=== PATIENT | female | born 1950 | race Caucasian/White ===

== ENCOUNTER 2022-08-03 08:58 | Emergency (ER) | payer MEDICARE, BC, SELFPAY ==
[2022-08-03 09:05] VITALS: BP 141/86; PULSE 65; RESP 19; TEMP 36.7; O2SAT 97; BMI 22.1
--- NOTE | 2022-08-03 09:14 | EXP.UTC ---
Discharge Plan Disposition Patient Disposition: Home, Self-Care Condition: Good Prescriptions Prescriptions: New benzonatate [benzonatate] 100 mg capsule 100 mg PO TIDP PRN (Reason: Cough) Qty: 30 0RF methylprednisolone 4 mg Tablets,Dose Pack 4 mg PO DIRECTED Qty: 21 0RF amoxicillin-pot clavulanate 875-125 mg Tablet 1 tab PO Q12H Qty: 20 0RF guaifenesin [Mucinex] 600 mg tablet extended release 12hr 600 - 1,200 mg PO BIDP PRN (Reason: Congestion) Qty: 30 0RF No Action levothyroxine 75 mcg Tablet 75 mcg PO DAILY Referrals Follow up/Referrals: Provider,Referral, MD [Primary Care Provider] - See instructions Activity Restrictions/Add. Instructions Additional Instructions/Restrictions: Drink plenty of fluids. Take tylenol or ibuprofen for pain or fever. Take the medications as directed. Follow up with your regular doctor. GO TO THE ER FOR ANY WORSENING SYMPTOMS Clinical Impressions Clinical Impression: Sinusitis Instructions Patient Instructions: Sinusitis, DI for Sinusitis Discharge ED Provider: Chapito Christian [facility] General Stated complaint: Sore throat, fatigue Time Seen by Provider: 08/03/22 09:14 Related Data Home Medications Medication Instructions Recorded Confirmed levothyroxine 75 mcg tablet 75 mcg PO DAILY thyroid 08/03/22 08/03/22 Previous Rx's Medication Instructions Recorded amoxicillin 875 mg-potassium 1 tab PO Q12H #20 tabs 08/03/22 clavulanate 125 mg tablet benzonatate 100 mg capsule 100 mg PO TIDP PRN Cough #30 caps 08/03/22 guaifenesin 600 mg tablet, 600 - 1,200 mg PO BIDP PRN 08/03/22 extended release 12 hr (Mucinex) Congestion #30 tabs methylprednisolone 4 mg tablets in 4 mg PO DIRECTED #21 tabs 08/03/22 a dose pack Allergies Allergy/AdvReac Type Severity Reaction Status Date / Time No Known Allergies Allergy Verified 08/03/22 09:19 [facility] Disclaimer: The information contained in this section may have been updated after the patient was seen, as this information can be updated by other users. Social History Smoking Status: Never smoker alcohol intake: never current occupational status: retired Travel in the last 8 weeks: None ROS Obtained: Yes All systems reviewed & no additional complaints except as documented Constitutional Constitutional: Reports poor appetite Eyes Eyes: Reports system reviewed and no additional complaints, except as documented ENT Ears, Nose, Mouth, and Throat: Reports as per HPI Cardiovascular Cardiovascular: Reports system reviewed and no additional complaints, except as documented and Denies chest pain Respiratory Respiratory: Denies shortness of breath, Denies chest congestion, Reports cough, Denies stridor and Denies wheezing Gastrointestinal Gastrointestingal: Reports system reviewed and no additional complaints, except as documented; Denies abdominal pain, diarrhea or vomiting Musculoskeletal Musculoskeletal: Reports system reviewed and no additional complaints, except as documented and Denies arthralgias Integumentary/Breasts Skin/Breast: Reports system reviewed and no additional complaints, except as documented and Denies rash Neurologic Neurologic: Denies paresthesias Allergic/Immunologic Allergic/Immunologic: Denies wheezing Physical Exam General General appearance: alert and in no apparent distress Eye Eye exam: Present normal appearance, PERRL and EOMI ENT ENT exam: Present mucous membranes moist and normal external ear exam Expanded ENT Exam External ear exam: Present normal external inspection TM/Canal exam: Bilateral TM: erythema and bulging Nose exam: Absent sinus tenderness Nasal speculum exam: Bilateral: normal Mouth exam: Present normal external inspection; Absent drooling Teeth exam: Present normal inspection Throat exam: Present tonsillar erythema and tonsillomegaly Neck Neck exam: Present normal
[2022-08-03 09:30] LABS: UTC Strep Screen (Rapid) Negative (Negative)
[2022-08-03 09:56] VITALS: BP 141/86; PULSE 65; RESP 18; TEMP 36.7; O2SAT 97
== END 2022-08-03 09:55 | disposition home or self-care (01) ==
PROVIDERS: Emergency Provider Nurse Practitioner Family
DX: J01.90 Acute sinusitis, unspecified (principal)
CPT/HCPCS: 87880; 99204; 99212; G0463

== ENCOUNTER 2024-05-13 11:13 | Emergency (ER) | payer MEDICARE, SELFPAY ==
--- NOTE | 2024-05-13 11:02 | PC.NURSE ---
DR HENRIQUEZ AT BEDSIDE
--- NOTE | 2024-05-13 11:07 | ECG_ITS ---
APPROVED REPORT Exam: Resting ECG HR:70 bpm ECG Measurements Heart Rate 70 AXES LA 153 P 82 QRSd 85 QRS 93 QT 386 T 87 QTc 407 Conclusion SINUS RHYTHM POSSIBLE RIGHT ATRIAL ENLARGEMENT [0.25mV P-WAVE] BORDERLINE RIGHT AXIS DEVIATION [QRS AXIS > 90] NONSPECIFIC T-WAVE ABNORMALITY BORDERLINE ECG UNCONFIRMED REPORT Electronically signed by : HUDSON FORTUNE, 05/14/2024 06:50:10
--- NOTE | 2024-05-13 11:09 | XR_ITS ---
FINAL REPORT CLINICAL HISTORY: syncope COMPARISON: None FINDINGS: CHEST SINGLE VIEW: A portable view of the chest was obtained. The heart size is normal. The mediastinum is normal. There is no focal infiltrate or edema. There is a right perihilar density present, as well as pleural thickening present in the left lung apex. There are no pleural effusions. There is no pneumothorax. There is no osseous abnormality. IMPRESSION: Right perihilar density, and without prior examinations would suggest CT of the chest for further evaluation. Left pleural calcification is present. Reviewed, Interpreted and Dictated by Alin Mcgrath MD Transcribed by Meli Willis Authenticated and [facility]
[2024-05-13 11:13] VITALS: BP 133/78; PULSE 78; RESP 18; TEMP 36.8; O2SAT 98; BMI 19.7
[2024-05-13 11:25] LABS: Basophils # 0.1 K/mm3 (0-0.2); Basophils % 0.8 % (0.1-2.0); Eosinophils % 0.5 % (0.1-12.0); Hematocrit 44.8 % (37.0-47.0); Hemoglobin 14.7 g/dL (12.2-16.2); Lymphocytes # 0.5 K/mm3 (0.7-4.5); Lymphocytes % 6.6 % (10-50); Mean Corpuscular HGB Conc 32.8 g/dL (31.8-35.4); Mean Corpuscular Hemoglobin 28.3 pg (27.0-31.2); Mean Corpuscular Volume 86.3 fl (81-99); Mean Platelet Volume 10.2 fl (7.4-10.4); Monocytes # 0.6 K/mm3 (0.1-1.0); Monocytes % 7.5 % (1.7-9.3); Neutrophils # 6.6 K/mm3 (1.8-7.8); Neutrophils % 84.3 % (37.0-80.0); Platelet Count 212 K/mm3 (142-424); Red Blood Count 5.19 M/mm3 (4.20-5.40); White Blood Count 7.8 K/mm3 (4.8-10.8)
--- NOTE | 2024-05-13 11:26 | HMH.EDGENADL ---
Discharge Plan Disposition Patient Disposition: Home, Self-Care Prescriptions Prescriptions: No Action levothyroxine 75 mcg Tablet 75 mcg PO DAILY Referrals Follow up/Referrals: Provider,Referral, MD [Primary Care Provider] - See instructions Activity Restrictions/Add. Instructions Additional Instructions/Restrictions: Call your family doctor to establish care for this visit to the emergency department and schedule follow-up within 48 hours to ensure improvement. If you have any worsening of your condition or any other concerning signs or symptoms, return to the emergency department or your primary care doctor for further evaluation. If you have any other episodes, call cardiology to follow-up for further evaluation. Also talk to family doctor regarding thyroid medication. TSH today was elevated at 11 meaning you probably need to have adjustment upward in your meds. Clinical Impressions Clinical Impression: Syncope, vasovagal Instructions Patient Instructions: DI for Syncope in Adults (Fainting), DI for Syncope in Children (Fainting) Print Language Print Language: Angolan Discharge ED Provider: Paul Dos Santos General Adult HPI General Chief complaint: Syncope Stated complaint: SYNCOPE Time Seen by Provider: 05/13/24 11:15 Mode of Arrival: EMS Source of Information: Patient Limitations: No Limitations Description of Symptoms (Recalled from ER Triage Doc. by RN): Pt presents via [facility] from [facility]. Pt was being seing there for sinus pressure and a slight headache. Pt had a syncopal episode and fell. PT did not hit her head, and is not on blood thinners. Pt regained LOC and felt like the pressure decreased in her sinuses. History of Present Illness HPI narrative: Please note that above description of symptoms, in this electronic medical record under categorization of recalled from ER triage doctor by RN are reflective of an initial nursing assessment, however, is not reflective of my full history and physical exam that was personally taken and clarified. Consequentially, this preceding description of symptoms, which may include the patient's categorized chief complaint in the EMR, do not reflect my personal clinical impression, and the ultimate description of history of present illness and patient stated complaints should be deferred to this section of the note. Unless stated otherwise or congruent with this section of the note, additional signs, symptoms, or incongruence should be interpreted as inaccurate with my clinical impression. Related Data Home Medications ?Medication ?Instructions ?Recorded ?Confirmed levothyroxine 75 mcg tablet 75 mcg PO DAILY thyroid 08/03/22 05/13/24 Allergies Allergy/AdvReac Type Severity Reaction Status Date / Time No Known Allergies Allergy Verified 05/13/24 11:36 [facility] Disclaimer: The information contained in this section may have been updated after the patient was seen, as this information can be updated by other users. Medical History (Updated 05/13/24 @ 12:27 by Paul Dos Santos MD) Hypothyroid Social History Smoking Status: Never smoker alcohol intake: never current occupational status: retired Travel in the last 8 weeks: None Have you lived/traveled outside US in past 30 days?: No Contact w/someone who lives/traveled outside US past 30 days?: No Exposure to someone with infectious disease in past 14 days?: No Do you have a fever (greater than 100.4 F or 38 C)?: No Have you tested positive for COVID-19: No Exposed to someone with COVID-19 in past 14 days?: No Do you have a sore throat?: No Do you have a cough?: No Do you have any weakness?: No Do you have any diarrhea?: No Are you experiencing any unusual bleeding?: No Do you have any muscle aches/pain?: No Do you have any abdominal pain?: No Are you experiencing loss of taste or smell?: No ROS Obtained: Yes All systems reviewed & no additional complaints except as documented Physical Exam General General appearance: alert Head Head exam: atraumatic and normocephalic Eye Eye exam: Present normal appearance, PERRL and EOMI Neck Neck exam: Present normal inspection, full ROM and trachea midline Respiratory Respiratory exam: Absent respiratory distress, wheezes, stridor, accessory muscle use or prolonged expiratory phase Cardiovascular Cardiovascular exam: Present other (Pulses equal symmetric in upper and lower extremities) Abdominal Exam Abdominal exam: Present soft; Absent distention, tenderness or pulsatile mass Extremities Exam Extremities exam: Absent edema Neurological Exam Neurological exam: Present alert, oriented X3 and CN II-XII intact; Absent motor sensory deficit Skin Skin exam: Present warm and dry; Absent diaphoresis or erythema Medical Decision Making Medical Records Medical records reviewed: Yes I reviewed the patient's medical records. Screening: Per USPSTF and CDC recommendations, given the prevalence of disease in our region, it is our hospital?s policy to screen for HIV and viral Hepatitis for all patients aged 18 and over and those with ongoing risk factors. Derick Inquiry Pt receiving controlled substance: No Derick was queried for this patient: No Vital Signs: 05/13/24 11:13 05/13/24 12:31 Temperature 98.2 F 98.6 F Temperature Source Oral Oral Pulse Rate 68 Pulse Rate [Left] 78 Respiratory Rate 18 18 Blood Pressure 143/78 H Blood Pressure [Right Arm] 133/78 Blood Pressure Mean [Right Arm] 96 Blood Pressure Source Automatic Cuff Blood Pressure Source [Right Arm] Automatic Cuff Blood Pressure Position Sitting 02 Sat by Pulse Oximetry 98 Oxygen Delivery Method Room Air Room Air Lab Data Lab Results 05/13/24 11:13: WBC 7.8, RBC 5.19, Hgb 14.7, Hct 44.8, MCV 86.3, MCH 28.3, MCHC 32.8, RDW 14.0, Plt Count 212, MPV 10.2, Neut % (Auto) 84.3 H, Lymph % (Auto) 6.6 L, [place] % (Auto) 7.5, Eos % (Auto) 0.5, Baso % (Auto) 0.8, Neut # (Auto) 6.6, Lymph # (Auto) 0.5 L, [place] # (Auto) 0.6, Eos # (Auto) 0.0, Baso # (Auto) 0.1, APTT 23.9, Sodium 137, Potassium 4.2, Chloride 103, Carbon Dioxide 24, Anion Gap 14.2, BUN 11, Creatinine 0.70, Estimated Creat Clear 42, Estimated GFR 82, Est GFR ( Amer) 100, Glucose 102 H, Calcium 8.6, Magnesium 1.9, Total Bilirubin 0.5, AST 43 H, ALT 29, Alkaline Phosphatase 58, Troponin I < 0.01, NT-Pro-B Natriuret Pep 72.3, Total Protein 7.3, Albumin 4.9, Globulin 2.4, Albumin/Globulin Ratio 2.0 H, TSH 11.00 H, Thyroxine (T4) 9.8 05/13/24 11:13 05/13/24 11:13 Orders (Tests/Meds): ED MEDICATIONS Discontinued Medications Generic Name Dose Route Start Last Admin Trade Name Freq PRN Reason Stop Dose Admin Ketorolac Tromethamine 15 mg 05/13/24 11:10 05/13/24 11:28 Ketorolac 30mg/Ml Vial IV 05/13/24 11:11 15 mg ONCE ONE Administration ORDERS Category Date Time Status XR chest portable Stat Exams 05/13/24 11:09 Completed Complete Blood Count Auto Diff Stat Lab 05/13/24 11:13 Completed Comprehensive Metabolic Panel Stat Lab 05/13/24 11:13 Completed Magnesium Stat Lab 05/13/24 11:13 Completed NT Pro Brain Natriuretic Pep. Stat Lab 05/13/24 11:13 Completed PTT [Activated Partial Thrombo Time] Stat Lab 05/13/24 11:13 Completed T4 (Thyroxine) Stat Lab 05/13/24 11:13 Completed TSH [Thyroid Stimulating Hormone] Stat Lab 05/13/24 11:13 Completed Troponin I Stat Lab 05/13/24 11:13 Completed HEART Score History (anamnesis): Slightly suspicious ECG: Normal Age: >65 years Risk factors: No known risk factors Troponin: </= normal limit HEART Score: 2 Medical Decision Narrative: 73-year-old female hypothyroidism presenting with syncopal episode. Patient's been feeling congested last couple of days. Eating and drinking per normal. She went to the urgent care today at an outside facility and while she was waiting in line, she felt lightheaded, nauseated, as if she was going to vomit in the next day she knows she woke up on the floor. EMS was contacted and she was brought here. Patient is completely asymptomatic on arrival and has no complaints. History was obtained via conversation with patient. On arrival, patient hemodynamically stable, alert, oriented x4, appropriate, GCS 15, moving all extremities spontaneously, pupils equal and reactive to light. Full physical exam performed and significant for well-appearing female no acute distress. Speaking full sentences, jovial, appropriate. Lungs are clear, heart sounds are normal. No lower extremity edema, pulses equal and symmetric, clinically very well. Differential includes vasovagal, orthostatic, arrhythmia, metabolic, endocrinologic, dehydration, PE, CHF, ACS, VT, among others. Patient placed on continuous cardiac monitoring and continuous pulse ox with initial blood pressure 133/78, heart rate 78, saturation 98% on room air. Independent interpretation of EKG shows sinus rhythm [address] or T wave changes concerning for acute ischemia. NJ 153, QRS 85, QTc 4 7. Normal axis. No acute ischemic change. Patient was given IV fluids for symptomatic management and correction of underlying abnormalities. Workup independently interpreted and significant for nonactionable hematologic workup other than elevated TSH, this was relayed to patient. On independent interpretation of imaging, no acute cardiopulmonary airspace disease on chest x-ray. Right perihilar density discussed with patient and is known to her. See radiology read for full review of final results. Heart score 2. On reevaluation, patient resting comfortably no acute complaints and no further episodes of syncope. Given patient presentation, workup, history, this most likely represents low risk vasovagal syncope. Because patient at baseline without signs or symptoms of clinical decompensation, deemed appropriate for discharge. Results were relayed to patient who voiced understanding and were agreeable to outpatient management and follow up. I discussed my clinical impression with patient and answered all questions. At this time, the evidence for any other entities in the differential is insufficient to warrant any further testing or ED observation. This was explained as well. Advisory was given that persistent or worsening symptoms require further evaluation. I confirmed the understanding of this discussion. Analytics Developer disclaimer Much of this encounter note is an electronic warehouse specialist spoken language to printed text. Electronic warehouse specialist of the spoken language may permit errors. Although I have reviewed the note, some errors may still exist. Critical Care Critical Care Time Critical Care Time: No
[2024-05-13 11:28] LABS: Alanine Aminotransferase 29 U/L (12-78); Albumin Level 4.9 g/dl (3.5-5.0); Alkaline Phosphatase 58 U/L (38-126); Anion Gap 14.2 mEq/L (5-15); Aspartate Amino Transferase 43 U/L (14-36); Bilirubin,Total 0.5 mg/dl (0.2-1.3); Blood Urea Nitrogen 11 mg/dl (7-17); Calcium 8.6 mg/dl (8.4-10.2); Carbon Dioxide 24 mmol/L (22.0-30.0); Chloride 103 mmol/L (98-107); Creatinine Clearance Estimated 42 mL/min (50-200); Estimated Glomerular Filt Rate 82 ml/min (>60); GFR (African American) 100 ML/MIN (>60); Globulin 2.4 g/dL (1.3-3.2); Glucose 102 mg/dl (74-100); Magnesium 1.9 mg/dl (1.6-2.3); Potassium 4.2 mmoL/L (3.5-5.1); Sodium 137 mmol/L (136-145); Total Protein,Serum 7.3 g/dl (6.3-8.2)
[2024-05-13] MEDS: KETOROLAC 30MG/ML VIAL 15 MG IV (11:28)
[2024-05-13 11:42] LABS: NT Pro Brain Natriuretic Pep. 72.3 pg/mL (0-125)
[2024-05-13 11:43] LABS: Troponin I < 0.01 ng/ml (0.00-0.034)
[2024-05-13 11:45] LABS: Activated Partial Thrombo Time 23.9 seconds (22.5-28.5)
--- NOTE | 2024-05-13 12:23 | PC.NURSE ---
1224 Pt sleeping at this time. Call light within reach
[2024-05-13 12:31] VITALS: BP 143/78; PULSE 68; RESP 18; TEMP 37; O2SAT 98
[2024-05-13 13:58] LABS: T4 (Thyroxine) 9.8 ug/dl (5.53-11.0)
== END 2024-05-13 12:37 | disposition home or self-care (01) ==
PROVIDERS: Emergency Provider Emergency Medicine
DX: R55 Syncope and collapse (principal); R51.9 Headache, unspecified; J34.89 Other specified disorders of nose and nasal sinuses; R42 Dizziness and giddiness; R11.0 Nausea
CPT/HCPCS: 71045; 80053; 83735; 83880; 84436; 84443; 84484; 85025; 85730; 93005; 96374; 99284; J1885

== ENCOUNTER 2024-10-24 12:45 | Outpatient (CLI) | payer MEDICARE, SELFPAY ==
--- OUTSIDE RECORDS SUMMARY | 2022-08-26 13:17 | XMS_ITS | Continuity of Care Document ---
Author Organization [facility] Address [address] [place] [id number] Phone Care Team Providers Care Truck Driver Name Role Phone Rey Ramirez MD Unavailable Unavailable Allergies, Adverse Reactions, Alerts Substance Reaction Status Criticality No Known Allergies Active No Inform ation Medications Medication Instructions Dosage Effective Dates (start - stop) Status Comments Clenpiq 10 mg-3.5 gram-12 gram/160 mL oral solution Take as directed. - Active alendronate 70 mg tablet take 1 tablet by oral route every week in the morning, at least 30 min before first food, beverage, or medication of day 70 MG - Active calcium carbonate 600 mg (1,500 mg)-vitamin D3 400 unit tablet 2 tabs PO daily - Active levothyroxine 75 mcg tablet take 1 tablet by oral route 5 days/week - Active Procedures Procedure Date LESION REMOVAL COLONOSCOPY COLONOSCOPY AND BIOPSY Moderate Sedation; First 15 Minutes Moderare Sedation; Each Addl 15 Minutes Tissue Exam By Pathologist Lesion Removal Colonoscopy Colonoscopy And Biopsy Patient Did NOT Experience Burn, Fall, W shirin, Admi OFFICE/OUTPATIENT VISIT, NEW OFFICE/OUTPATIENT VISIT, EST-Expanded Ma [facility] Annual Wellness Visit - Subsequent Visit ACP DISCUSS/DSCN MKR DOCD VENIPUNCTURE Admin pneumococcal vaccine PCV20 VACCINE IM OFFICE/OUTPATIENT VISIT, EST-Expanded Scott Cepheid Quad Test (SARS CoV2, FluA&B, RS V) Admin pneumococcal vaccine PNEUMOCOCCAL VACCINE Admin influenza virus vac RIV4 VACC RECOMBINANT DNA IM VENIPUNCTURE [facility] Annual Wellness Visit - Subsequent Visit OFFICE/OUTPATIENT VISIT, EST-Expanded Au OFFICE/OUTPATIENT VISIT, EST-Detailed Ma OFFICE/OUTPATIENT VISIT, EST-Expanded Scott Flu Vacc Flulaval 0.5mL Multi Dose Vial 6 + Months Admin influenza virus vac Nurse Visit No Charge LESION REMOVAL COLONOSCOPY COLONOSCOPY AND BIOPSY COLON W/SNARE/COLD POLYPECTOMY 15 COLON W/BIOPSY OFFICE/OUTPATIENT VISIT, [facility] Advance Directives Directive Yes / No Effective Date File Name No Information Encounters Encounter Description Practice Location Reason(s) For Visit Diagnoses Date Provider Providers Copied on Encounter [facility], [address] [place] [address], [address] [place] [address] tel:[phone] [facility] No Information 3 Ashley Le. [address] [place] [address], [facility] [place], [facility], . tel:[phone] Referring Provider: Ana Partida, [address] [place] [address] [place] [address] [place], [address]. tel:[phone] [facility], [address] [place] [address], [address] [place] [address], [facility], tel:[phone] [facility] No Information 2 Robin Chi. [address] [place] [address], [address], [place], [place], [id number], [place]. tel:[phone] Referring Provider: Luis Cobb, Fax To LOCATION FLOAT Provider For [facility], [place], [address]. [facility], [facility], [address], [place], [address], [place] tel:[phone] [facility] No Information 2 Leonardo Archer. [facility], [address], [place], [address], [place]. tel:[phone] Referring Provider: Jerad Dickson Dr [address] [facility], [place], [address]. tel:[phone] [facility], [facility], [place], [address], tel:[phone] [facility] No Information 2 Robin Chi. [address], [address] [facility], [place], [place], [id number], [place]. tel:[phone] Referring Provider: Jerad Dickson Dr [address] [address] [facility], [place], [address]. tel:[phone] [facility], [facility], [address], [place], [address], [place] tel:[phone] [facility] Personal history of colon cancer Mar-2 2 Robin Chi. [address], [address] [facility], [place], [place], [id number], [place]. tel:[phone] Referring Provider: Luis Cobb, Fax To LOCATION FLOAT Provider For [facility], [place], [address]. OFFICE/OUTPA TIENT VISIT, NEW [facility], [facility], [address], [place], [address], [place] tel:[phone] [facility] Screening Colonoscopy (chief complaint) Personal history of colon cancer 2 Robin Chi. [address], [address] on [facility], [place], [place], [id number], [place]. tel:[phone] Referring Provider: Luis Cobb, Fax To LOCATION FLOAT Provider For [facility], [place], [address]. OFFICE/OUTPA TIENT VISIT, EST-Expanded [facility] [address], [facility], [place] tel:[phone] [facility] medicare preventive (chief complaint)f/ u osteoporosis , lung nodule (chief complaint) General medical examinationP ostoperative hypothyroidi smSeasonal allergic rhinitis due to pollenHistor y of uveitisPulmo nary nodulePostme nopausal osteoporosis Body mass index [BMI] 24.0-24.9, adultSmoking history 2 Marbin Perez. [address], [facility] [place], [id number], [place]. tel:[phone] Referring Provider: Ana Partida, [address] [facility] [place], [address]. tel:[phone] OFFICE/OUTPA TIENT VISIT, EST-Expanded [facility] [address], [address], [place] tel:[phone] [facility] sick (chief complaint) Acute non-recurren t maxillary sinusitisPND (post-nasal drip)Advice given about COVID-19 virus infectionCou 2 Reza Smith. Fax To LOCATION FLOAT Provider For [facility], [place], [address], [place]. Referring Provider: Luis Cobb, Fax To LOCATION FLOAT Provider For [facility], [place], [address]. [facility] [address], [address], tel:[phone] [facility] No Information 0 Reza Smith. Fax To LOCATION FLOAT Provider For [facility], [place], [address], [place]. Referring Provider: Luis Cobb, Fax To LOCATION FLOAT Provider For [facility], [place], [address]. [facility], [address] [place] [address], [facility], tel:[phone] [facility] No Information 0 Reza Smith. Fax To LOCATION FLOAT Provider For [facility], [place], [address], [place]. Referring Provider: Luis Cobb, Fax To LOCATION FLOAT Provider For [facility], [place], [place], [facility]. OFFICE/OUTPA TIENT VISIT, EST-Expanded [facility], [address] [place] [address], [facility], tel:[phone] [facility] medicare preventive (chief complaint)Ch ronic Conditions (chief complaint) General medical examinationH ypothyroidis m, unspecified typeBody mass index (BMI) 22.0-22.9, adultSmoker 0 Reza Smith. Fax To LOCATION FLOAT Provider For [facility], [place], [address], [place]. Referring Provider: Luis Cobb, Fax To LOCATION FLOAT Provider For [facility], [place], [address]. OFFICE/OUTPA TIENT VISIT, EST-Detailed [facility], [address] [place] [address], [facility], tel:[phone] [facility] URI (chief complaint)sm oking cessation (chief complaint) Sinusitis, bacterialOth er specified bacterial agents as the cause of diseases classified elsewhereEnc ounter for smoking cessation counseling Hussein Smith. [address] [place] [address], [facility], . tel:[phone] Referring Provider: Luis Le, [address] [place] [address], [facility]. tel:[phone] [facility], [address] [place] [address], [address], [place] tel:[phone] [facility] No Information Nurse Services. [address] [place], [place], [id number], . [phone] Referring Provider: Luis Cobb, Fax To [facility] For [facility], [place], [address]. OFFICE/OUTPA TIENT VISIT, EST-Expanded [facility], [address] [place] [address], [address], [place] tel:[phone] [facility] No Information 8 Ashley Le. [address] [place] [address] Rd [facility], [employer], [place], [facility], . tel:[phone] Referring Provider: Rey Ramirez, [address] [employer], [place], [facility]. tel:[phone] [facility], [address] [place] [address], [facility], [place] tel:[phone] [facility] No Information 7 Nurse Services. [address] [place], [place], [id number], . tel:[phone] Referring Provider: Luis Le, [address] [facility] [address], [place], [facility]. tel:[phone] [facility], [address] [place] [address], [address], [place], [address], tel:[phone] [facility] Screening colonoscopy Sep- Robin Chi. [address] [place] [address], [address], [place], [place], [id number], . tel:[phone] Referring Provider: Luis Le, [address] [facility] [address] [place] [address], [facility]. tel:[phone] [facility], [address] [place], [place] [address], [place], [address], [place] tel:[phone] [facility] No Information 5 Robin Chi. [address], [address] [facility], [place], [place], [id number], . tel:[phone] OFFICE/OUTPA TIENT VISIT, NEW [facility], [address] [facility], [address], [place], [address], tel:[phone] [facility] Screening Colonoscopy (chief complaint) Screening colonoscopy 5 Robin Chi. [address], [address] [facility], [place], [place], [address], . tel:[phone] Referring Provider: Luis Le[address], [place], [address]. tel:[phone] Family History Family Member Type Diagnosis Age At Onset Sister Problem (finding) Alive and well Mother Problem (finding) CDiff colitis (Cause Of ) Father Problem (finding) coronary arter iosclerosis (Cause Of ) Close relative Problem Melanoma Immunizations Vaccine Date Status Comments Pneumococcal conjugate PCV20 administered Source: New Immunization Record SARS-COV-2 (COVID-19) Pfizer vaccine, mRNA, spike protein, LNP, preservative free, 30 mcg/0.3mL dose administered Source: Source Unspe cified SARS-COV-2 (COVID-19) Pfizer vaccine, mRNA, spike protein, LNP, preservative free, 30 mcg/0.3mL dose administered Source: Source Unspe cified SARS-COV-2 (COVID-19) Pfizer vaccine, mRNA, spike protein, LNP, preservative free, 30 mcg/0.3mL dose administered Source: Source Unspe cified Shingrix administered Note: [facility] ; Source: Public Agency Influenza, Flublok, recombinant, quadrivalent, preservative free, 0.5mL IM administered Source: New Immunization Record Pneumo (2 yrs or older)(PPV) administered Source: New Immunization Record TDaP administered Source: Other P jorje Ellerstavax administered Source: Source Unspecified Td (adult) preservative free administered Source: Source Unspecified Payers Payer name Insurance type Covered republican ID Authoriza tion(s) Medicare Part B MB [id number] [facility] Medicare Blue Supplemental [id number] Medicare Part B MB [id number] [facility] Medicare Blue Supplemental CI [id number] Medicare Part B MB [id number] Social History Type Description Quantity Date Captured Comments Sex Female Smoking Status No Information Chief Complaint And Reason For Visit No Information Reason For Referral Reason For Referral No Information Plan Of Treatment Date Type Action Status Goal Tobacco cessation counseling completed Goal Diabetes screeni ng. Due on due Goal DEXA scan due Goal Mammogram. Due on due Goal Fall Risk Assess ment. Due on due Goal Hep C Ab due Goal Lifestyle educat ion regarding diet completed Goal Diabetes screeni ng. Due on due Goal Alcohol Misuse s creen. Due on due Goal Preventive Exam 65+. Due on due Goal DEXA scan due Goal Fall Risk Assess ment. Due on due Goal Hep C Ab due Goal Depression scree [place]. Due on due Goal Mammogram. Due on due Goal Lipid Panel. Due on 997 due Goal Mammogram. Due on 6 due Goal Hep C Ab. Due on due Goal Diabetes screeni ng. Due on due Goal DEXA scan due Goal Lifestyle educat ion regarding diet completed Referral Ordered: Referral for Direct Access Colon Screening Appointment date/timeframe: 04/05/2020 ordered Future Order: Radiology Order CT Chest Without Contrast ([id number]), Appointment on: Ordered Future Order: Radiology Order Ma mmo Digital Screen 3D Bilat [id number] (MAMTOMOBIL), Appointment on: Ordered Future Order: Radiology Order De xa Bone Density - Densitometry ([id number]), Appointment on: Ordered Future Order: Radiology Order Ma mmo Digital Screen w/Terrance Bilat: Diag Mammo Or Diag US As Needed (MAMTOMOBIL), Appointment on: Ordered Future Order: Radiology Order CT Chest Low Dose Screening For Lung Cancer ([id number]), Appointment on: Ordered History Of Present Illness Encounter Date Complaint History Of Prese nt Illness Screening Colonoscopy Prior scre ening: colonoscopy. Denies risk factors. There are no associated symptoms. Pertinent negatives include abdominal pain, change in bowel habits, change in stool caliber, constipation, decreased appetite, diarrhea, melena, nausea, rectal bleeding, vomiting, weight gain and weight loss. Additional information: No family history of colon cancer, No family history of Crohn's/colitis and No NSAID/ASA use. Screening Colonoscopy (comments) Has severe osteoporosis. Oral fosamax once a week. [facility] thyroid removed 2016. Enlarged. No cancer. f/u osteoporosis, lung nodule medicare preventive The patient has not felt depressed and has had interest and pleasure doing things recently. The patient is not at risk for falls. The patient has in the last year. Patient exercises 2-3 times/week. The patient has smoke detectors, firearms, carbon monoxide detectors in the home. Patient reports using a seatbelt in vehicles. Patient takes calcium supplements. Patient reports taking Vitamin D. Patient reports taking a multivitamin. Relevant history is negative for passive vaping exposure, passive smoke exposure. Patient is a former tobacco user. Comments: sick Pt her for evalu ation of URI symptoms. Symptoms started on 04/16/21, reported having scratchy throat/ST, sinus congestion, watery eyes, even teeth is starting to hurt along with white sputum cough. Tmax of 99F, taking Sudafed, Mucinex, stay hydrated. No SOB or changes in taste/smell. No specific COVID exposure, with similar symptoms. No recent travel and pt is vaccinated/boosted. medicare preventive The patient has not felt depressed and has had interest and pleasure doing things recently. The patient is not at risk for falls. The patient has not fallen in the last year. The fall(s) did not result in injury. The patient has smoke detectors, firearms, carbon monoxide detectors in the home. Patient reports using a seatbelt in vehicles. Relevant history is positive for tobacco use. Comments: Chronic Conditions 1) Hypothyroi dism, unspecified type (onset 12/05/2019; Chronic. Pt with hx of hypothyroidism, taking levothyroxine 75mcg daily and has follow up with Endo. No reported problems with medications. ) URI The symptoms beg an 4 days ago. The symptoms have worsened. The patient presents with cough, earache and headache. The patient does not present with pharyngitis. Additional information: Teeth pain, jaw pain, post nasal drip. smoking cessation Smoked from 17 - 41 y/0Quit from 41 - 53 y/oSmoked from 53- 65 ... 1/2 ppd... would like to quiT Total = 18 pack yr historyhas tried gum/patches/ etc all without reliefFamiliar with Chantix and would like to try it Screening Colonoscopy No prior s creening. Denies risk factors. There are no associated symptoms. Pertinent negatives include abdominal pain, change in bowel habits, change in stool caliber, constipation, decreased appetite, diarrhea, melena, nausea, rectal bleeding, vomiting, weight gain and weight loss. Additional information: No family history of colon cancer, No family history of Crohn's/colitis and No NSAID/ASA use. Functional Status Date Functional Assessmen t No Information Instructions Date Instruction Additional Infor ahmet Colonoscopy schedule d. Risk of procedure explained to patient including but not limited to bleeding, perforation, infection and a small risk of missed lesion. Related to Personal history of colon cancer Lifestyle education regarding di et Related to Body mass index (BMI) 24.0-24.9, adult Healthy Lifestyle Care Plan Pt is an active smok er, will refer for low dose CT chest.When pt is ready, can consider another trial of Chantix. Related to Smoker Referral for repeat colonoscopy.PHQ2 negative for depression.Social EtOH consumption.Referral for DEXA.Pt will follow up with [employer] for [employer]/PAP.Increase water intake.Pneumo and Flu vaccinations today.Screening labs.No memory or cognitive issues.Reviewed advanced directives, pt will review and resubmit. Related to General medical examination Deferring management to Endo.Encouraged medication compliance.Pt to monitor for any changes. Related to Hypothyroidism, unspecified type Lifestyle education regarding di et Related to Body mass index (BMI) 22.0-22.9, adult Colonoscopy scheduled. Related t o Screening colonoscopy Assessments Type Assessment Date No Information Patient Care Teams Name Effective Dates (start - stop) Status Members No Information
--- NOTE | 2024-10-24 12:48 | XR_ITS ---
FINAL REPORT CLINICAL HISTORY: pain in right wrist FINDINGS: RIGHT WRIST Three views were obtained. There is a large cystic lesion of the first metacarpal base as described on the hand radiographs. There is severe subluxation of the first carpometacarpal joint. There is mild chondrocalcinosis. There is a questionable fracture versus bony overlap involving the triquetrum. IMPRESSION: Cystic bony lesion of the first carpometacarpal with advanced degenerative changes of the first CMC joint. Questionable fracture along the medial triquetrum. CT correlation may be helpful. Reviewed, Interpreted and Dictated by Taco Ibarra MD Transcribed by Patrizia Haskins Authenticated and [facility]
--- NOTE | 2024-10-24 12:48 | XR_ITS ---
FINAL REPORT CLINICAL HISTORY: pain in forearm hx of fracture FINDINGS: RIGHT FOREARM Two views were obtained. The patient is status post ORIF changes of the mid radius and ulna. Fracture sites are obscured by hardware. No acute fracture is evident. IMPRESSION: Healed radial and ulnar fractures. Reviewed, Interpreted and Dictated by Taco Ibarra MD Transcribed by Patrizia Haskins Authenticated and [facility]
--- NOTE | 2024-10-24 12:48 | XR_ITS ---
FINAL REPORT CLINICAL HISTORY: pain in hand and thumb area FINDINGS: RIGHT HAND Three views were obtained. There is no fracture or dislocation. There is a lucent lesion with cortical breakthrough at the first metacarpal base. Lesion measures 12 mm. There are severe degenerative changes of the first carpometacarpal joint. There is significant subluxation of the first carpometacarpal joint. There are mild osteoarthritic changes of the DIP and PIP joints. Mild chondrocalcinosis is identified. IMPRESSION: Large lucent lesion at the first metacarpal base with cortical breakthrough, could represent large geode, enchondroma, or other benign bony lesion. Advanced degenerative changes with subluxation of the first carpometacarpal joint. Reviewed, Interpreted and Dictated by Taco Ibarra MD Transcribed by Patrizia Haskins Authenticated and [facility]
--- OUTSIDE RECORDS SUMMARY | 2024-10-24 12:49 | XMS_ITS | Referral Summary ---
Author Organization [employer] ([place], [place], [place], [place]) Address [address] [place] [address] Care Team Providers Care Registered Nurse Cardiac Name Role Phone Unavailable Primary Care Provider Unavailabl e Social History Tobacco Use Types Packs/Day Years Used Date Smoking Tobacco: Former Cigarettes 0.7 44 0 10/1968 - 10/1991 Comments:Started smoking at age 18. At age 21 -41 1 ppd. At age 41 quit for 12 years. Started again now at 0.5 ppd. Food Insecurity Answer Date Recorded Food run out past 12 months Not on file 05/12 Food did not last past 12 months Not on file 06/02/2023 Employment Answer Date Recorded Help finding and keeping a job Not on file 0 06/02/2023 Family and Community Support Answer Taras e Recorded Help with Day to Day Activities Not on file 06/02/2023 Feeling Lonely or Isolated Not on file 06/02 Educational Attainment Answer Date Pedro rded Speak language other than Bahamian at home Not on file 06/02/2023 Want help with school or training Not on file 06/02/2023 Substance Use Answer Date Recorded Used prescription meds for non-medical reasons N ot on file 06/02/2023 Used illegal drugs past 12 months Not on file 06/02/2023 Comments Unknown Sex and Gender Information Value Date Recorded Sex Assigned at Not on file 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
--- OUTSIDE RECORDS SUMMARY | 2024-10-24 12:49 | XMS_ITS | Clinical Summary ---
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 Gender Identity Not on file Sexual Orientation Not on file Plan of Treatment Health Maintenance Due Date Last Done Comments CT Colonography 1950 Colonoscopy 1950 Colorectal Cancer Screening 1950 DXA SCAN 1950 FOBT/FIT 1950 Fit-DNA (Cologuard) 1950 Sigmoidoscopy 1950 Depression Screening (12+) 1963 Tobacco Cessation Counseling and Screening (12+) 09/17 Hepatitis C Screening 09/17/1969 DTAP/TDAP/TD VACCINES (1 - Tdap) 09/17/1970 Breast Cancer Screening 1991 Pneumococcal 50+ years (1 of 1 - PCV) 09/17/2001 Shingles Vaccine (Zoster) (1 of 2) 09/17/2001 Medicare Initial AWV [id number] 09/09/2017 COVID-19 VACCINE ( season) 12/10/202312/2022 Falls Risk Screening 04/10/2024 Influenza Vaccine (#1) 2024 02/16/2023 Respiratory Syncytial Virus (RSV) Adult or (1 - 1-dose 75+ series) 09/17/2026 Insurance MEDICARE PART A B
--- OUTSIDE RECORDS SUMMARY | 2024-10-24 12:49 | XMS_ITS | Clinical Summary ---
Author Organization Healthcare Address [address] [place] [address] Care Team Providers Care Client Analyst Name Role Phone Pcp, No Primary Care Provider Unavailabl e Allergies No known active allergies Medications levothyroxine (Synthroid, Levoxyl) 75 MCG tablet TAKE 1 TABLET BY MOUTH 5 TIMES PER WEEK Active fluticasone (Flonase) 50 MCG/ACT nasal spray as needed (50 mcg/actuat) Active alendronate (Fosamax) 70 MG tablet Take 1 tablet (70 mg) by mouth 1 (one) time per week. Active amoxicillin (Amoxil) 500 MG capsule Take 1 capsule (500 mg) by mouth 3 (three) times a day. 04/17/2024 Active azithromycin (Zithromax) 250 MG tablet TAKE 2 TABLETS BY MOUTH FOR 1 DAY THEN TAKE 1 TABLET BY MOUTH DAILY FOR 4 DAYS 05/15/2023 Active Loratadine-D 12HR 5-120 MG 12 hr tablet Take 1 tablet by mouth 2 (two) times a day. Active pseudoephedrine ER (Sudafed-12 Hour) 120 MG 12 hr tablet Take by mouth 1 (one) time each day. Active rosuvastatin (Crestor) 20 MG tablet Take by mouth. 10/16/2023 Active traMADol (Ultram) 50 MG tablet Take 1 tablet (50 mg) by mouth every 8 (eight) hours if needed. 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 Family History Medical History Relation Name Comments Hypertension Father Macular degeneration Father Relation Name Status Comments Father Social History Tobacco Use Types Packs/Day Years Used Date Smoking Tobacco: Every Day Cigarettes 0.5 58.9 Started: 11/26/1965 Passive Smoke Exposure: Current Smokeless Tobacco: Never Tobacco Cessation:Ready to Q uit: Not Asked; Counseling Given: Not Answered Comments Unknown Sex and Gender Information Value Date Recorded Sex Assigned at Not on file Legal Sex Female 7:29 PM EDT Gender Identity Not on file Sexual Orientation Not on file Plan of Treatment Upcoming Encounters Date Type Department Care Team (Late st Contact Info) Description 04/29/2025 10:30 AM EST Office Visit [facility] [address] [place] [address] Hattie Aldridge S, OD [address] [place] [phone] Health Maintenance Due Date Last Done Comments [facility]-Depression Screening 1951 [facility]-Hepatitis C Screening 1951 [facility]-Infant/Child/Adol SDOH Screenings 1950 [facility]- SDOH Screenings 09/17/1969 [facility]-Adult SDOH Screenings 09/17/1969 [facility]-DTaP,Tdap,and Td Vaccine s (1 - Tdap) 09/17/1970 [facility]-Pneumococcal Vaccine: 50 + Years (1 of 2 - PCV) 09/17/1970 CT Colonography 09/17/1996 Colonoscopy 09/17/1996 FIT-DNA 09/17/1996 FIT 09/17/1996 FOBT 09/17/1996 Sigmoidoscopy 09/17/1996 [facility]-Colorectal Cancer Screening 09/17/1996 [facility]-Breast Cancer Screening 09/17/2001 [facility]-Zoster Vaccines (1 of 2) 09/17/2001 [facility]-Medicare Annual Wellness (AWV) 12/06/2023 12/05/2022 [id number] Vaccine (3 - Moderna risk series) 04/26/2024 03/29/2024, 02/16/2023 [facility]-Lung Cancer Screening 05/04/2024 05/04/2023 [facility]-Bone Density Scan 12/05/2024 12/05/2022 [facility]-Influenza Vaccine (#1) 12/09/202402/27, 02/16/2023 [facility]-RSV Vaccine: 60+ Years o r Completed 01/16/2023 HPV Vaccines Aged Out No longer eligi ble based on patient's age to complete this topic [facility]-HIB Vaccines Aged Out No longer e ligible based on patient's age to complete this topic [facility]-Hepatitis A Vaccines Aged Out No longer eligible based on patient's age to complete this topic [facility]-IPV Vaccines Aged Out No longer e ligible based on patient's age to complete this topic [facility]-Rotavirus Vaccines Aged Out No lo nger eligible based on patient's age to complete this topic [place] [address] [facility] Advance Directives Documents on File Type Date Recorded Patient Executive Receptionist Expl anation Advance Directives and Living Will 09/25/2023 Care Teams Client Analyst Relationship Specialty Start Date [place] [address] PCP - General Family Medicine 09/25/23
== END 2024-10-24 23:59 | disposition home or self-care (01) ==
LOC: RAD 12:47
PROVIDERS: Visit Provider Nurse Practitioner
DX: M18.9 Osteoarthritis of first carpometacarpal joint, unspecified (principal); R93.6 Abnormal findings on diagnostic imaging of limbs; M85.641 Other cyst of bone, right hand; S63.041A Subluxation of carpometacarpal joint of right thumb, initial encounter; M79.631 Pain in right forearm; Z87.81 Personal history of (healed) traumatic fracture
CPT/HCPCS: 73090; 73110; 73130